=== PATIENT | male | born 1985 | race Caucasian/White ===

== ENCOUNTER 2019-03-03 15:23 | Emergency (ER) | payer OTHER ==
[~2019-03-03] VITALS: Ht 172.7 cm; Wt 68.0 kg
[2019-03-03 15:25] VITALS: BP 136/78; Ht 172.7 cm; Wt 68.0 kg
== END 2019-03-03 16:22 | disposition other institution (70) ==
LOC: ED 15:23
DX: Z02.89 Encounter for other administrative examinations (principal)